=== PATIENT | male | born 1980 | race Caucasian/White ===

== ENCOUNTER 2017-05-13 19:25 | Emergency (ER) | END 2017-05-13 23:53 | disposition home or self-care (01) ==

== ENCOUNTER 2018-05-17 20:13 | Emergency (ER) | payer MEDICAID ==
[~2018-05-17] VITALS: Ht 167.6 cm; Wt 75.8 kg
[~2018-05-17 20:13] MED LIST: ALBU8.5H8 INH; AMOX500C2 PO; CARB15DR50 BOTH EARS; IBUP-1542 PO; NPH10OT LEFT EAR; PRED20TA PO
[2018-05-17 20:20] VITALS: Ht 167.6 cm; Wt 75.8 kg
[2018-05-17] MEDS ORDERED: DIPHTH/TET/ACEL PERTUSS (ADULT) 0.5 ML VIAL IM* ONE (22:00)
[2018-05-17] MEDS ORDERED: HYDROCODONE/APAP (10/325) TAB PO ONE (22:00)
--- NOTE | 2018-05-17 22:01 | ERD ---
ER Documentation Chief Complaint Chief Complaint R middle finger smashed in tailgate of truck @1500 HPI This is a 37-year-old male who presents here in emergency department with complaints of right middle finger injury. Stated this happened around 3 PM, while he was closing the tailgate of a truck. Stated that he accidentally smashed his right finger. Does not know his last tetanus shot. Not on any blood thinners. Only past medical history of asthma. Denies headache, head injury, loss of consciousness, dizziness, neck pain, neck stiffness, throat pain, difficulty swallowing, difficulty breathing lying flat, shoulder pain, chest pain, back pain, abdominal pain, nausea, vomiting, constipa tion, diarrhea, urinary symptoms, loss of bowel and bladder control, difficulty walking due to pain, numbness or tingling sensation, calf pain, recent travel, recent major surgery in the last 3 weeks, calf pain, recent long travel, recent exposure to any illness, recent antibiotic use in the last 3 months, fever, chills, seizures. Past medical history: Surgical history: Social: Denies smoking, use of alcoholic beverages, use of illegal drugs. ROS All systems reviewed and are negative except as per history of present illness. Medications Home Meds Active Scripts Ibuprofen* (Motrin*) 800 Mg Tab, 800 MG PO Q6H PRN for PAIN AND OR ELEVATED TEMP, #30 TAB Prov:SHANELLNOREENDARION F 05/18/18 Cephalexin* (Keflex*) 500 Mg Capsule, 500 MG PO BID for 5 Days, CAP Prov:SUMMERILADARION SORTO F 05/18/18 Carbamide Peroxide* (Debrox*) 6.5% - 15 Ml Drops, 10 DROP BOTH EARS BID, #1 BOTTLE Prov:DERIK TALLEY NP 08/17/17 Ibuprofen* (Motrin*) 600 Mg Tab, 600 MG PO Q6H PRN for PAIN AND OR ELEVATED TEMP, #30 TAB Prov:DERIK TALLEY NP 08/17/17 Neomycin/Polymyxin/Hydrocort* (Cortisporin* Otic) 10 Ml Susp, 4 DROP LEFT EAR QID for 7 Days, EA Prov:DERIK TALLEY NP 08/17/17 Amoxicillin* (Amoxicillin*) 500 Mg Cap, 500 MG PO TID for 10 Days, CAP Prov:CUISIA,DERIK HERNANDEZ [employer]. [employer] 08/17/17 Prednisone* (Prednisone*) 20 Mg Tab, 40 MG PO DAILY for 4 Days, TAB Prov:PRAKASH SOTO PA-C 05/13/17 Albuterol Sulfate* (Proair HFA*) 8.5 Gm Hfa.aer.ad, 2 PUFF INH Q4, #1 INHALER Prov:PRAKASH SOTO PA-C 05/13/17 Allergies Allergies: Coded Allergies: No Known Allergy (Unverified , 05/13/17) PMhx/Soc Medical and Surgical Hx: pt denies Surgical Hx History of Surgery: No Anesthesia Reaction: No Hx Neurological Disorder: No Hx Respiratory Disorders: Yes (Asthma) Hx Cardiac Disorders: No Hx Psychiatric Problems: No Hx Miscellaneous Medical Probl: No Hx Alcohol Use: Yes (Occasional) Hx Substance Use: No Hx Tobacco Use: Yes (3 sticks/day) Smoking Status: Current every day smoker Physical Exam Vitals Vital Signs Date Temp Pulse Resp B/P (MAP) Pulse Ox O2 O2 Flow FiO2 Time Delivery Rate 05/18/18 98.2 56 18 129/84 96 Room Air 00:38 (99) 05/17/18 97.9 80 16 144/82 98 20:20 (102) Physical Exam Const: No acute distress Head: Atraumatic Eyes: Normal Conjunctiva ENT: Normal External Ears, Nose and Mouth. Neck: Full range of motion. No meningismus. Resp: Clear to auscultation bilaterally Cardio: Regular rate and rhythm, no murmurs Abd: Soft, non tender, non distended. Normal bowel sounds Skin: No petechiae or rashes Back: No midline or flank tenderness Ext: No cyanosis, or edema. Distal area of the right middle finger has a punctured wound/laceration measuring approximately 0.8 cm in length with controlled bleeding. No subungual hematoma. Right middle finger has good and full flexion of its DIP/PIP/MCP. MCP of the right middle finger unremarkable. Right index/ring/pinky fingers are unremarkable. No snuffbox tenderness. Right thumb is unremarkable. Right wrist is unremarkable. Right forearm is unremarkable. Right elbow/shoulder are unremarkable. Neur: Awake and alert. No neurological deficits. Psych: Normal Mood and Affect Results 24 hrs Current Medications Medications Dose Sig/Laina Start Time Status Last (Trade) Ordered Route PRN Stop Time Admin Dose Reason Admin 1 tab ONCE ONCE 05/17/18 DC 05/17/18 Acetaminophen PO 22:00 22:04 / 05/17/18 22:01 Hydrocodone Bitart ([place] (10/325)) Diphtheria/ 0.5 ml ONCE ONCE 05/17/18 DC 05/17/18 Tetanus/Acell IM* 22:00 22:05 Pertussis 05/17/18 22:01 (Adacel) Bacitracin 1 applic ONCE ONCE 05/18/18 DC 05/18/18 (Bacitracin TOP 00:30 00:30 Oint (Ud)) 05/18/18 00:31 Procedures/MDM Diagnostic tests: X-ray of the right hand: No acute osseous abnormality. Chronic appearing deformity of the third distal phalangeal tuft. Soft tissue swelling, distal third digit. Procedure: Laceration repair to right middle finger. Laceration measuring approximately 0.8 cm in length. Sterile technique obtained. Verbal consent obtained. Betadine prep. Lidocaine 2 cc digital block and subcu. Ethilon 4-0 x2 simple interrupted sutures. Treatment: Adacel IM. [place] p.o. Wound cleaning was applied wound cleaning was done by EMT. Dressing was applied by EMT. Re-evaluation: No neurovascular deficit prior to and after the application of dressing. No subungual hematoma. Differential diagnosis I have low suspicion for open fracture, retained foreign body, subungual hematoma. Final diagnosis: Laceration/punctured wound. Prescription: Keflex. Motrin. Follow-up with PCP in the next 24-48 hours. Come back here in the emergency department for any new symptoms or any worsening symptoms. All questions and concerns were answered. Patient and family members verbalized understanding and agreed with plan of care. Hemodynamically stable on discharge. Departure Diagnosis: Primary Impression: Finger injury Additional Impression: Puncture wound of finger Condition: Stable Additional Instructions: Follow-up with PCP in the next 24-48 hours. Come back here in the emergency department for any new symptoms or any worsening symptoms. DARION VARGAS May 17, 2018 22:01
[2018-05-18] MEDS ORDERED: CEPH-443 PO (00:04)
[2018-05-18] MEDS ORDERED: IBUP800T48 PO (00:05)
[2018-05-18] MEDS ORDERED: BACITRACIN 0.9 GM OINT TOP ONE (00:30)
[2018-05-18 00:38] VITALS: BP 129/84; PULSE 56; RESP 18
== END 2018-05-18 00:43 | disposition home or self-care (01) ==
LOC: FTE 20:13
DX: S61.212A Laceration without foreign body of right middle finger without damage to nail, initial encounter (principal); J45.909 Unspecified asthma, uncomplicated; F17.210 Nicotine dependence, cigarettes, uncomplicated; W23.0XXA Caught, crushed, jammed, or pinched between moving objects, initial encounter; Y92.9 Unspecified place or not applicable; Z23 Encounter for immunization
CPT/HCPCS: 12001; 73130; 90471; 90715; Z7502; Z7610